=== PATIENT | male | born 1945 | race Caucasian/White ===

== ENCOUNTER 2024-08-10 15:23 | Emergency (ER) | payer MEDICARE, BC, SELFPAY ==
[2024-08-10 15:25] VITALS: BP 166/85
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
== END 2024-08-10 17:07 | disposition home or self-care (01) ==
LOC: EMR 15:23
PROVIDERS: EMERGENCY PHYSICIAN Emergency Medicine; FAMILY PHYSICIAN Family Medicine
DX: S00.93XA Contusion of unspecified part of head, initial encounter (principal); W21.04XA Struck by golf ball, initial encounter; I10 Essential (primary) hypertension
CPT/HCPCS: 99284; 70450